=== PATIENT | female | born 1960 | race Caucasian/White ===

== ENCOUNTER 2018-05-19 03:14 | Emergency (ER) | payer BC, OTHER ==
[2018-05-19] MEDS ORDERED: NS 1,000 ML IV ONE (04:00)
[2018-05-19] MEDS ORDERED: KETOROLAC 15 MG/1 ML SDV IVP ONE (04:00)
--- NOTE | 2018-05-19 04:01 | EDPHY ---
H & P Stated Complaint: R FLANK PAIN,BURNING W/ URINATION Time Seen by Provider: 05/19/18 03:49 HPI/ROS: Chief Complaint: Flank pain, burning with urination HPI: 57-year-old woman presenting with right flank pain which woke her from sleep approximately 3 hr ago. Some nausea but no vomiting. Pain is about a 7/ 10. No history of similar pain in the past. For the last 2 days she has had some urinary burning at the end of urination. No frequency or urgency. No fevers or chills. No diarrhea or constipation. ROS: 10 systems were reviewed and were negative except those elements noted in the HPI. PMH: Denies Social History: No smoking, rare alcohol, no recreational drug use Family History: non-contributory Physical Exam: Gen: Awake, Alert, No Distress HEENT: Nose: no rhinorrhea Eyes: PERRLA, EOMI Mouth: Moist mucosa Neck: Supple, no JVD Chest: nontender, lungs clear to auscultation Heart: S1, S2 normal, no murmur Abd: Soft, non-tender, no guarding Back: no CVA tenderness, no midline tenderness Ext: no edema, non-tender Skin: no rash Neuro: CN II-XII intact, Sensation grossly intact, Strength 5/5 in bilateral upper and lower extremities - Personal History Current Tetanus Diphtheria and Acellular Pertussis (TDAP): Unsure - Medical/Surgical History Hx Asthma: No Hx Chronic Respiratory Disease: No Hx Diabetes: No Hx Cardiac Disease: No Hx Renal Disease: No Hx Cirrhosis: No Hx Alcoholism: No Hx HIV/AIDS: No Hx Splenectomy or Spleen Trauma: No Other PMH: DENIES - Social History Smoking Status: Never smoked Constitutional: Initial Vital Signs Temperature (C) 36.6 C 05/19/18 03:20 Heart Rate 96 05/19/18 03:20 Respiratory Rate 16 05/19/18 03:20 Blood Pressure 114/84 H 05/19/18 03:20 O2 Sat (%) 98 05/19/18 03:20 O2 Delivery Mode Room Air Allergies/Adverse Reactions: Penicillins Allergy (Verified 05/19/18 03:20) Home Medications: Medication Instructions Recorded Nitrofurantoin Monohyd/M-Cryst 100 mg PO BID #10 capsule 05/19/18 [Macrobid 100 mg Capsule] Medical Decision Making - Diagnostics Imaging Results: CT scan abdomen pelvis is negative per the radiologist. ED Course/Re-evaluation: Urinalysis shows hematuria. Patient has a trace leuk esterase and greater reds than white cells. I am not convinced she has pyuria but given the negative CT scan will treat for possible early pyelo. CT scan of the abdomen pelvis is negative for acute intra-abdominal pathology per the radiologist. - Data Points Laboratory Results: Laboratory Results 05/19/18 04:20 05/19/18 04:20 05/19/18 05/19/18 05/19/18 04:20 04:20 03:23 WBC 10.63 10^3/uL H 10^3/uL (3.80-9.50) RBC 3.85 10^6/uL L 10^6/uL (4.18-5.33) Hgb 12.3 g/dL L g/dL (12.6-16.3) Hct 35.2 % L % (38.0-47.0) MCV 91.4 fL fL (81.5-99.8) MCH 31.9 pg pg (27.9-34.1) MCHC 34.9 g/dL g/dL (32.4-36.7) RDW 13.1 % % (11.5-15.2) Plt Count 244 10^3/uL 10^3/uL (150-400) MPV 10.1 fL fL (8.7-11.7) Neut % (Auto) 74.8 % H % (39.3-74.2) Lymph % (Auto) 15.7 % % (15.0-45.0) Pike % (Auto) 7.5 % % (4.5-13.0) Eos % (Auto) 1.2 % % (0.6-7.6) Baso % (Auto) 0.5 % % (0.3-1.7) Nucleat RBC Rel Count 0.0 % % (0.0-0.2) Absolute Neuts (auto) 7.95 10^3/uL H 10^3/uL (1.70-6.50) Absolute Lymphs (auto) 1.67 10^3/uL 10^3/uL (1.00-3.00) Absolute Monos (auto) 0.80 10^3/uL 10^3/uL (0.30-0.80) Absolute Eos (auto) 0.13 10^3/uL 10^3/uL (0.03-0.40) Absolute Basos (auto) 0.05 10^3/uL 10^3/uL (0.02-0.10) Absolute Nucleated RBC 0.00 10^3/uL 10^3/uL (0-0.01) Immature Gran % 0.3 % % (0.0-1.1) Immature Gran # 0.03 10^3/uL 10^3/uL (0.00-0.10) Sodium 135 mEq/L mEq/L (135-145) Potassium 3.3 mEq/L mEq/L (3.3-5.0) Chloride 104 mEq/L mEq/L (97-110) Carbon Dioxide 22 mEq/l mEq/l (22-31) Anion Gap 9 mEq/L mEq/L (6-14) BUN 18 mg/dL mg/dL (7-23) Creatinine 0.7 mg/dL mg/dL (0.6-1.0) Estimated GFR > 60 Glucose 104 mg/dL H mg/dL (70-100) Calcium 8.7 mg/dL mg/dL (8.5-10.4) Urine Color YELLOW Urine Appearance MODERATELY TURBID Urine pH 5.0 (5.0-7.5) Ur Specific Watson 1.014 (1.002-1.030) Urine Protein 2+ H (NEGATIVE) Urine Ketones NEGATIVE (NEGATIVE) Urine Blood 3+ H (NEGATIVE) Urine Nitrate NEGATIVE (NEGATIVE) Urine Bilirubin NEGATIVE (NEGATIVE) Urine Urobilinogen NEGATIVE EU EU (0.2-1.0) Ur Leukocyte Esterase TRACE H (NEGATIVE) Urine RBC 50-182 /hpf H /hpf (0-3) Urine WBC 25-50 /hpf H /hpf (0-3) Ur Epithelial Cells NONE SEEN /lpf /lpf (NONE-1+) Urine Mucus TRACE /lpf /lpf (NONE-1+) Urine Glucose NEGATIVE (NEGATIVE) Medications Given: Discontinued Medications Sodium Chloride (Ns) 1,000 mls @ 0 mls/hr IV ONCE ONE; Wide Open PRN Reason: Protocol Stop: 05/19/18 04:01 Last Admin: 05/19/18 04:15 Dose: 1,000 mls Ketorolac Tromethamine (Toradol) 15 mg IVP EDNOW ONE Stop: 05/19/18 04:01 Last Admin: 05/19/18 04:15 Dose: 15 mg Departure - Departure Disposition: Home, Routine, Self-Care Clinical Impression: Kidney stone Condition: Good Instructions: Kidney Stones (ED) Additional Instructions: Please take her full course of antibiotics. May take ibuprofen, 600 mg 3 times a day for pain. You may alternate with acetaminophen, 1000 mg 3 times a day. Follow up with primary care physician in 3-4 days for further evaluation. Referrals: SKYLAR VIVAS [Primary Care Provider] - As per Instructions Prescriptions: Nitrofurantoin Monohyd/M-Cryst [Macrobid 100 mg Capsule] 100 mg PO BID #10 capsule
[2018-05-19 04:37] LABS: PLATELET COUNT 244 10^3/uL (150-400)
[2018-05-19 05:15] VITALS: BP 113/79
== END 2018-05-19 05:14 | disposition home or self-care (01) ==
DX: R10.31 Right lower quadrant pain (principal); N20.0 Calculus of kidney; E86.9 Volume depletion, unspecified
CPT/HCPCS: 96374; J1885